=== PATIENT | female | born 1985 | race Caucasian/White ===

== ENCOUNTER 2022-12-30 08:13 | Inpatient (IN) | payer BC ==
[2022-12-29 14:34] VITALS: BMI 29.2
[2022-12-30] MEDS ORDERED: Misoprostol 200 MCG TAB VAG SCH (08:30)
[2022-12-30] MEDS ORDERED: Misoprostol 200 MCG TAB PO SCH (08:30)
[2022-12-30] MEDS ORDERED: Ondansetron ODT 4 MG TAB SL PRN (09:08)
[2022-12-30 09:16] LABS: INR-International Normal Ratio 0.9; PTT 28.9 sec (22.0-33.0); Prothrombin Time 9.7 sec (9.5-12.1)
[2022-12-30 09:51] LABS: D-Dimer Test 0.72 mg/L FEU (0.19-0.50)
[2022-12-30 10:04] LABS: #Eosinphils 0.1 10x3/uL (0.0-0.5); #Monocytes 0.3 10x3/uL (0.0-1.1); #Neutrophils 4.3 10x3/uL (1.5-8.4); %Basophils 0.7 % (0.0-2.0); %Eosinophils 1.8 % (0.0-6.0); %Lymphocytes 21.1 % (18.0-47.0); %Monocytes 4.9 % (0.0-10.0); %Neutrophils 70.8 % (40.0-75.0); Hematocrit 41.8 % (34.9-44.5); Hemoglobin 13.8 g/dL (12.0-15.5); Mean Corpuscular Hemoglobin 28.8 pg (27.0-33.0); Mean Corpuscular Volume 87.3 fl (81.6-98.3); Mean Platelet Volume 11.6 fl (7.4-10.4); Platelet Count 257 10x3/uL (150-450); RBC Distribution Width 13.8 % (11.5-14.5); Red Blood Cell (RBC) Count 4.79 10x6/uL (3.90-5.03); White Blood Cell (WBC) Count 6.1 10x3/uL (3.5-10.5)
[2022-12-30] MEDS ORDERED: Lidocaine 1% MPF 2 ML VIAL ONE (10:56)
[2022-12-30] MEDS ORDERED: Ketorolac Tromethamine 30 MG/ML VIAL ONE (12:22)
[2022-12-30] MEDS ORDERED: Ondansetron PF 4 MG/2 ML Vial ONE (12:22)
[2022-12-30] MEDS ORDERED: Rocuronium Bromide 10 MG/ML (10ML VIAL) ONE (12:22)
[2022-12-30] MEDS ORDERED: Glycopyrrolate 0.2 MG/ML 5 ML SYRINGE ONE ×2 (12:22→12:23)
[2022-12-30] MEDS ORDERED: Midazolam HCl 2 mg/2 ml Vial ONE (12:23)
[2022-12-30] MEDS ORDERED: PROPOFOL 20 ML ONE (12:23)
[2022-12-30] MEDS ORDERED: fentaNYL 50 mcg/mL 1 mL Vial ONE (12:23)
[2022-12-30] MEDS ORDERED: Lidocaine 1% PF 5 ML VIAL ONE (12:23)
[2022-12-30] MEDS ORDERED: Sevoflurane 250 ML INH ANEST BOTTLE ONE (12:26)
[2022-12-30] MEDS ORDERED: Dexmedetomidine 200 MCG/2 ML VIAL ONE (12:26)
[2022-12-30] MEDS ORDERED: Methylergonovine 0.2 MG/ML VIAL ONE (12:37)
[2022-12-30] MEDS ORDERED: cefTRIAXone (ROCEPHIN) 1 GM VIAL ONE (13:14)
[2022-12-30] MEDS ORDERED: Lactated Ringer's 1,000 ML IV SCH (13:15)
[2022-12-30] MEDS ORDERED: Lidocaine 1% PF 5 ML VIAL SQ SCH (13:15)
[2022-12-30] MEDS ORDERED: Tranexamic Acid 1,000 MG/10 ML VIAL ONE (13:37)
[2022-12-30] MEDS ORDERED: PHENYLEPHRINE-NS 100 MCG/ML 10 ML SYRINGE ONE ×2 (13:40→13:42)
[2022-12-30] MEDS ORDERED: Silver Nitrate Application 1 EACH ONE (13:46)
[2022-12-30] MEDS ORDERED: Acetaminophen 325 MG TAB PO PRN (16:14)
[2022-12-30 20:17] LABS: Hematocrit 37.5 % (34.9-44.5); Hemoglobin 12.9 g/dL (12.0-15.5); Mean Corpuscular HGB CONC 34.4 g/dL (32.0-36.0); Mean Corpuscular Hemoglobin 29.5 pg (27.0-33.0); Mean Corpuscular Volume 85.6 fl (81.6-98.3); Mean Platelet Volume 11.5 fl (7.4-10.4); Platelet Count 228 10x3/uL (150-450); RBC Distribution Width 13.6 % (11.5-14.5); Red Blood Cell (RBC) Count 4.38 10x6/uL (3.90-5.03); White Blood Cell (WBC) Count 14.9 10x3/uL (3.5-10.5)
[2022-12-31 04:13] LABS: #Monocytes 0.4 10x3/uL (0.0-1.1); #Neutrophils 10.5 10x3/uL (1.5-8.4); %Basophils 0.2 % (0.0-2.0); %Lymphocytes 6.8 % (18.0-47.0); %Monocytes 3.2 % (0.0-10.0); %Neutrophils 88.9 % (40.0-75.0); Hematocrit 31.1 % (34.9-44.5); Mean Corpuscular HGB CONC 35.4 g/dL (32.0-36.0); Mean Corpuscular Hemoglobin 29.9 pg (27.0-33.0); Mean Corpuscular Volume 84.5 fl (81.6-98.3); Mean Platelet Volume 11.9 fl (7.4-10.4); Platelet Count 184 10x3/uL (150-450); RBC Distribution Width 13.5 % (11.5-14.5); Red Blood Cell (RBC) Count 3.68 10x6/uL (3.90-5.03); White Blood Cell (WBC) Count 11.8 10x3/uL (3.5-10.5)
[2022-12-31 05:32] VITALS: TEMP 98.3
[2022-12-31 07:40] VITALS: BP 107/58
== END 2022-12-31 09:55 | disposition home or self-care (01) | DRG 770 ==
LOC: CSHSDC 08:13 → CSHPP 15:25
PROVIDERS: ADMIT Family Medicine; ATTEND Family Medicine
PROC: 10D17ZZ Extraction of Products of Conception, Retained, Via Natural or Artificial Opening (ICD-10-PCS; principal; 2022-12-30)
PROC: 10A07ZX Abortion of Products of Conception, Abortifacient, Via Natural or Artificial Opening (ICD-10-PCS; 2022-12-30)
PROC: 30233N1 Transfusion of Nonautologous Red Blood Cells into Peripheral Vein, Percutaneous Approach (ICD-10-PCS; 2022-12-30)
DX: O02.1 Missed abortion (principal); N96 Recurrent pregnancy loss; Z79.899 Other long term (current) drug therapy
CPT/HCPCS: 36415; 36430; 85025; 85049; 85300; 85362; 85379; 85384; 85610; 85730; 86850; 86900; 86901; 88305; J0696; J1885; J2210; J2250; J2405; J2704; J3010; J7120; P9016